=== PATIENT | male | born 1990 | race Hispanic/Latino ===

== ENCOUNTER → 2021-08-23 | Outpatient (REF) | payer OTHER ==
[2021-08-23 09:40] LABS: SEMEN APPEARANCE OPAQUE (OPAQUE); SEMEN VISCOSITY VISCOUS (LIQUID); SEMEN VOLUME 2.3 ml (2.0-5.0); SEMEN pH 8.5 (7.0-8.0); SPERM CONCENTRATION 37.6 M/ml (>=15.0); WBC CONCENTRATION <=1 M/ml (<=1 M/ml)
== END ==
LOC: M LAB REF 09:33
PROVIDERS: ATTEND Physician Assistant
DX: Z31.41 Encounter for fertility testing (principal)

== ENCOUNTER → 2021-08-25 | Outpatient (REF) | payer OTHER ==
[2021-08-25 10:01] LABS: SEMEN APPEARANCE OPAQUE (OPAQUE); SEMEN VOLUME 2.1 ml (2.0-5.0)
[2021-08-25 10:02] LABS: SEMEN VISCOSITY LIQUID (LIQUID); SPERM CONCENTRATION 46.9 M/ml (>=15.0); WBC CONCENTRATION <=1 M/ml (<=1 M/ml)
== END ==
LOC: M LAB REF 09:55
PROVIDERS: ATTEND Physician Assistant
DX: Z31.41 Encounter for fertility testing (principal)

== ENCOUNTER 2022-11-16 18:30 | Inpatient (IN) | payer OTHER ==
[~2022-11-16] VITALS: Ht 185.4 cm; Wt 90.0 kg
[2022-11-16] MEDS ORDERED: FLUO40CA (18:39)
[2022-11-16 19:22] LABS: HEMATOCRIT 47.3 % (42.0-52.0); HEMOGLOBIN 16.8 g/dl (13.5-17.5); MEAN CORPUSCULAR HEMOGLOBIN 31.4 pg (27.0-33.0); MEAN CORPUSCULAR HGB CONC 35.5 g/dl (32.0-36.5); MEAN CORPUSCULAR VOLUME 88.4 fl (80.0-96.0); PLATELET COUNT, AUTOMATED 245 10^3/uL (150-450); RED BLOOD COUNT 5.35 10^6/uL (4.30-6.10); WHITE BLOOD COUNT 14.1 10^3/uL (4.0-10.0)
[2022-11-16 19:42] LABS: ACETAMINOPHEN LEVEL < 2.0 UG/ML (10.0-20.0); ETHYL ALCOHOL (ETHANOL) 0.018 % (0.000-0.010)
[2022-11-16 19:43] LABS: SALICYLATE LEVEL < 3.0 MG/DL (<30)
[2022-11-16 19:46] LABS: ALBUMIN 4.6 G/DL (3.2-5.2); ALKALINE PHOSPHATASE 100 U/L (46-116); ALT/SGPT 31 U/L (7.0-40); AST/SGOT 23 U/L (<34); BILIRUBIN,DIRECT 0.4 MG/DL (<0.4); BILIRUBIN,TOTAL 1.3 MG/DL (0.3-1.2); BLOOD UREA NITROGEN 15 MG/DL (9-23); CALCIUM LEVEL 9.4 MG/DL (8.5-10.1); CARBON DIOXIDE LEVEL 25 MMOL/L (20-31); CHLORIDE LEVEL 102 MMOL/L (98-107); CREATININE FOR GFR 0.89 MG/DL (0.70-1.30); GLOMERULAR FILTRATION RATE > 60.0 (>60); GLUCOSE, FASTING 86 MG/DL (60-100); SODIUM LEVEL 138 MMOL/L (136-145); THYROID STIMULATING HORMONE 0.712 uIU/ML (0.55-4.78); TOTAL PROTEIN 7.6 G/DL (5.7-8.2)
[2022-11-16 19:58] LABS: AMPHETAMINES LEVEL URINE NEGATIVE (NEGATIVE); BARBITURATES URINE NEGATIVE (NEGATIVE); BENZODIAZEPINES URINE NEGATIVE (NEGATIVE); CANNABINOIDS URINE NEGATIVE (NEGATIVE); COCAINE METABOLITE URINE NEGATIVE (NEGATIVE); METHADONE URINE NEGATIVE (NEGATIVE); OPIATES URINE NEGATIVE (NEGATIVE); PHENCYCLIDINE URINE NEGATIVE (NEGATIVE)
[2022-11-16] MEDS ORDERED: FLUO40CA PO (21:03)
[2022-11-16] MEDS ORDERED: AMOX875T2 PO (21:03)
[2022-11-16] MEDS ORDERED: HOME MED LIST COMPLETE! XX SCH (21:05)
[2022-11-17] MEDS ORDERED: ACETAMINOPHEN TAB 650MG DOSE (2X325MG) PO PRN (15:55)
[2022-11-17] MEDS ORDERED: MOM 30ML SUSPENSION UDC PO PRN (15:55)
[2022-11-17] MEDS ORDERED: MAALOX 30 ML SUSP *UDC PO PRN (15:55)
[2022-11-18 06:34] VITALS: BP 154/92
[2022-11-18] MEDS: FLUoxetine 20MG CAP PO SCH (08:45)
[2022-11-18] MEDS: busPIRone 10 MG TAB PO SCH ×2 (13:01→21:20)
[2022-11-19 07:00] VITALS: BP 157/84
[2022-11-19] MEDS: FLUoxetine 20MG CAP PO SCH (10:15)
[2022-11-19] MEDS: busPIRone 10 MG TAB PO SCH ×2 (10:15→21:11)
[2022-11-20 06:21] VITALS: BP 131/75
[2022-11-20] MEDS: busPIRone 10 MG TAB PO SCH ×2 (08:50→21:10)
[2022-11-20] MEDS: FLUoxetine 20MG CAP PO SCH (08:50)
[2022-11-20 16:53] VITALS: BP 137/90
[2022-11-21 06:43] VITALS: BP 133/74
[2022-11-21] MEDS: FLUoxetine 20MG CAP PO SCH (09:41)
[2022-11-21] MEDS: busPIRone 10 MG TAB PO SCH ×2 (09:41→20:51)
[2022-11-21 17:00] VITALS: BP 155/91
[2022-11-21] MEDS: ARIPiprazole 2 MG TAB PO SCH (20:51)
[2022-11-21] MEDS: traZODone 50 MG TAB PO PRN (21:02)
[2022-11-22 06:51] VITALS: BP 128/73
[2022-11-22] MEDS: FLUoxetine 20MG CAP PO SCH (10:02)
[2022-11-22] MEDS: busPIRone 10 MG TAB PO SCH ×2 (10:02→21:06)
[2022-11-22 16:11] VITALS: BP 116/72
[2022-11-22] MEDS: ARIPiprazole 2 MG TAB PO SCH (21:06)
[2022-11-22] MEDS: traZODone 50 MG TAB PO PRN (21:07)
[2022-11-23 07:09] VITALS: BP 133/90
[2022-11-23] MEDS: busPIRone 10 MG TAB PO SCH ×2 (10:41→20:30)
[2022-11-23] MEDS: FLUoxetine 20MG CAP PO SCH (10:42)
[2022-11-23] MEDS: ARIPiprazole 2 MG TAB PO SCH (20:29)
[2022-11-24 06:15] VITALS: BP 133/80
[2022-11-24] MEDS ORDERED: TRAZ-252 PO ×2 (08:22→11:08)
[2022-11-24] MEDS ORDERED: FLUO20CA22 PO ×2 (08:22→11:08)
[2022-11-24] MEDS ORDERED: ABIL1TAB13 PO ×2 (08:22→11:08)
[2022-11-24] MEDS ORDERED: BUSP15TA47 PO ×2 (08:22→11:08)
[2022-11-24] MEDS: FLUoxetine 20MG CAP PO SCH (09:30)
[2022-11-24] MEDS: busPIRone 10 MG TAB PO SCH (09:30)
== END 2022-11-24 09:37 | disposition home or self-care (01) | DRG 882 ==
LOC: M ED 18:30 → M ED INP 11-17 15:54 → M PSY 11-17 17:21
PROVIDERS: ADMIT Student in an Organized Health Care Education/Training Program; ATTEND Student in an Organized Health Care Education/Training Program
DX: F43.10 Post-traumatic stress disorder, unspecified (principal); U07.1 COVID-19; R45.851 Suicidal ideations; F33.1 Major depressive disorder, recurrent, moderate; Z79.899 Other long term (current) drug therapy; Z91.82 Personal history of military deployment